=== PATIENT | female | born 1985 | race Caucasian/White ===

== ENCOUNTER 2017-06-03 17:57 | Emergency (ER) | payer OTHER ==
[2017-06-03 18:04] VITALS: TEMP 98.2
--- NOTE | 2017-06-03 18:37 | EDPHY ---
H & P Stated Complaint: 18 weeks/feeling lightheaded/hyperventilating/figers tingling Time Seen by Provider: 06/03/17 18:28 HPI/ROS: CHIEF COMPLAINT: Lightheaded, tingling fingers HISTORY OF PRESENT ILLNESS: The patient is an 18 week 31 y/o female, [id number], complaining of feeling lightheaded with some tingling of her fingers that began this afternoon. She recently took a trip to [place] and has felt like she is developing a cold since then. This morning she was feeling normal, no URI symptoms or other complaints. Her lightheadedness began while she was working in the kitchen. She sat down and put her head between her legs--her father took her blood pressure and found it to be 89/50. She did not pass out. She has a history of panic attacks, but these symptoms feel different. She was been weaning off of her Alprazolam; she takes 0.5mg twice a day. Her psychiatrist and ASSISTANT COUNSEL, in [place], are supervising this. She has not had abdominal pain/ cramping, discharge or vaginal bleeding. Denies headache, fever, cough, diarrhea , vomiting, difficulty urinating. Denies abdominal pain, vaginal bleeding or discharge. She has had some mild constipation. REVIEW OF SYSTEMS: A ten point review of systems was performed and is negative with the exception of the items mentioned in the HPI. Past medical history: Anxiety Bipolar Miscarriage (08/2016) Past surgical history: Denies Family history: Denies Social history: and mother at bedside Lives in [place] ASSISTANT COUNSEL: Erma Tate, General Appearance: Tearful. Alert. Vital signs reviewed. Blood pressure 126/ 82, respiratory rate 22. Eyes: Pupils equal and round, no conjunctival injection, no discharge. Anicteric. ENT, Mouth: Mucous membranes are moist, no oropharyngeal erythema or edema. Neck: No lymphadenopathy, supple. Respiratory: Lungs are clear to auscultation; no wheezes, rales, or rhonchi. Cardiovascular: Regular rate and rhythm; no murmur, rub, or gallop. Gastrointestinal: Abdomen is soft and nontender, no masses or organomegaly, bowel sounds normal. Skin: Warm and dry, no rashes on exposed skin, normal color. Back: Nontender to palpation over the thoracolumbar spine. No CVAT. Extremities: No lower extremity edema, no calf tenderness or swelling. Neurological: Alert and oriented. Moving all four extremities easily and equally. 3+ bilateral knee reflexes. Sensation intact to LT over all four extremities. Psychiatric: Anxious affect. - Personal History LMP (Females 10-55): Current Tetanus/Diphtheria Vaccine: Yes - Medical/Surgical History Hx Asthma: No Hx Chronic Respiratory Disease: No Hx Diabetes: No Hx Cardiac Disease: No Hx Renal Disease: No Hx Cirrhosis: No Hx Alcoholism: No Hx HIV/AIDS: No Hx Splenectomy or Spleen Trauma: No Other PMH: anxiety/bipolar/miscarriage in august - Social History Smoking Status: Never smoked Constitutional: Initial Vital Signs Temperature (C) 36.8 C 06/03/17 18:00 Heart Rate 96 06/03/17 18:00 Respiratory Rate 22 H 06/03/17 18:00 Blood Pressure 126/82 H 06/03/17 18:00 O2 Sat (%) 100 06/03/17 18:00 O2 Delivery Mode Room Air Allergies/Adverse Reactions: No Known Allergies Allergy (Unverified 06/03/17 18:00) Home Medications: Medication Instructions Recorded ALPRAZolam 06/03/17 06/03/17 busPIRone 06/03/17 Medical Decision Making - Diagnostics Imaging: I viewed and interpreted images myself Procedures: Procedure: A limited transabdominal ultrasound was performed on this patient. The indication for the study was presyncope in . On the examination I found that there was an active fetus. heart tones were present, 150-160. Results of the exam: Positive for IUP. The procedure was interpreted and performed by myself, Dr. Rainey. ED Course/Re-evaluation: The patient is an 18 week 31 y/o female, , presenting with feeling lightheaded and having a tingling sensation in her fingers. Her physical exam is normal. BP normal here. 1900: I preformed an OB ultrasound. There is an active fetus with normal heart tones. Labs reviewed--CBC, BMP, UA. No significant abnormalities. Nothing to suggest blood loss. I do not suspect infection. I do not think that this represents impending miscarriage (which is her concern). She is very gradually tapering her alprazolam and I do not think that she is withdrawing from benzodiazepines. Symptoms resolved. I do not know why she would have been hypotensive or pre- syncopal. It seems that anxiety is playing a role in her presentation tonight. 2001: Consulted with Dr. Tate, ASSISTANT COUNSEL, regarding the patient's symptoms. She agrees that no further work-up is needed at this time and will see the patient in FU. 2014: Reassessed patient, she is feeling better. Return precautions provided; patient is comfortable with this plan. - Data Points Laboratory Results: Laboratory Results 06/03/17 18:40 06/03/17 18:40 Medications Given: Discontinued Medications Sodium Chloride (Ns) 1,000 mls @ 0 mls/hr IV ONCE ONE PRN Reason: Wide Open Stop: 06/03/17 18:51 Last Admin: 06/03/17 18:51 Dose: 1,000 mls Departure - Departure Disposition: Home, Routine, Self-Care Clinical Impression: Pre-syncope Condition: Good Instructions: Near Syncope (ED) Additional Instructions: Follow up with your ASSISTANT COUNSEL in the next week. Return to the emergency department if you experience chest pain, shortness of breath, fever, numbness or weakness, abdominal pain or other worsening of your symptoms. Referrals: Erma Tate [Other] - As per Instructions Report Scribed for: Iliana Rainey Report Scribed by: Jayshree Ty Date of Report: 06/03/17 Time of Report: 18:43 Physician Review and Approval Statement: 06/03/17 18:37 Portions of this note were transcribed by the medical director/head team physician. I, Dr. Iliana Rainey, personally performed the history, physical exam, and medical decision- making; and confirmed the accuracy of the information in the transcribed note.
[2017-06-03] MEDS ORDERED: NS 1,000 ML IV ONE (18:50)
[2017-06-03 19:17] LABS: % IMMATURE GRANULYOCYTES 0.4 % (0.0-1.1); ABSOLUTE IMMATURE GRANULOCYTES 0.04 10^3/uL (0.00-0.10); ADD DIFF? NO; ADD MORPH? NO; ADD SCAN? NO; ATYPICAL LYMPHOCYTE FLAG 10 (0-99); FRAGMENT RBC FLAG 0 (0-99); HEMOGLOBIN 12.3 g/dL (12.6-16.3); LEFT SHIFT FLG 0 (0-99); LIPEMIA HEMOLYSIS FLAG 90 (0-99); MEAN CELL HEMOGLOBIN 30.9 pg (27.9-34.1); MEAN CELL HEMOGLOBIN CONCENTR. 35.1 g/dL (32.4-36.7); MEAN CELL VOLUME 87.9 fL (81.5-99.8); MEAN PLATELET VOLUME 9.4 fL (8.7-11.7); PLATELET CLUMPS FLAG 0 (0-99); PLATELET COUNT 255 10^3/uL (150-400); RED BLOOD CELL COUNT 3.98 10^6/uL (4.18-5.33); RED CELL DISTRIBUTION WIDTH 13.1 % (11.5-15.2)
[2017-06-03 19:31] LABS: ANION GAP 12 mEq/L (8-16); CALCIUM 9.7 mg/dL (8.5-10.4); CARBON DIOXIDE 21 mEq/l (22-31); CHLORIDE 106 mEq/L (97-110); CREATININE 0.5 mg/dL (0.6-1.0); GLOMERULAR FILTRATION RATE > 60; GLUCOSE 93 mg/dL (70-100); POTASSIUM 3.5 mEq/L (3.5-5.2); SODIUM 139 mEq/L (134-144)
[2017-06-03 19:36] LABS: COLOR COLORLESS; LEUKOCYTE ESTERASE,URINE NEGATIVE (NEGATIVE); NITRITE,URINE NEGATIVE (NEGATIVE)
[2017-06-03 20:23] VITALS: BP 107/70; PULSE 76; RESP 18; O2SAT 99
== END 2017-06-03 20:23 | disposition home or self-care (01) ==
DX: O99.89 Other specified diseases and conditions complicating pregnancy, childbirth and the puerperium (principal); R55 Syncope and collapse; Z3A.18 18 weeks gestation of pregnancy